=== PATIENT | male | born 2000 | race Asian ===

== ENCOUNTER 2021-10-23 17:04 | Inpatient (IN) | payer OTHER ==
[~2021-10-23] VITALS: Ht 170.2 cm; Wt 84.5 kg
[2021-10-23] MEDS ORDERED: HOME MED LIST COMPLETE! XX SCH (19:00)
[2021-10-23] MEDS ORDERED: MAALOX 30 ML SUSP *UDC PO PRN (20:00)
[2021-10-23] MEDS ORDERED: MOM 30ML SUSPENSION UDC PO PRN (20:00)
[2021-10-23] MEDS ORDERED: hydrOXYzine 10 MG TAB PO PRN (20:00)
[2021-10-23] MEDS ORDERED: traZODone 50 MG TAB PO PRN (20:00)
[2021-10-23] MEDS ORDERED: ACETAMINOPHEN TAB 650MG DOSE (2X325MG) PO PRN (20:00)
[2021-10-24 00:53] VITALS: BP 134/91
[2021-10-24 06:43] VITALS: BP 122/67
[2021-10-24] MEDS: NICOTINE 14 MG/24 HR TRANSDERMAL TD SCH (09:00)
[2021-10-24] MEDS ORDERED: SERTRALINE HCL 50 MG TAB PO ONE (09:00)
[2021-10-24 18:31] LABS: HEMATOCRIT 45.6 % (42.0-52.0); HEMOGLOBIN 15.4 g/dl (13.5-17.5); MEAN CORPUSCULAR HEMOGLOBIN 28.6 pg (27.0-33.0); MEAN CORPUSCULAR HGB CONC 33.8 g/dl (32.0-36.5); MEAN CORPUSCULAR VOLUME 84.6 fl (80.0-96.0); PLATELET COUNT, AUTOMATED 221 10^3/uL (150-450); RED BLOOD COUNT 5.39 10^6/uL (4.30-6.10); WHITE BLOOD COUNT 6.6 10^3/uL (4.0-10.0)
[2021-10-24 18:53] VITALS: BP 131/87
[2021-10-24 19:05] LABS: BLOOD UREA NITROGEN 13 MG/DL (7-18); CALCIUM LEVEL 8.7 MG/DL (8.5-10.1); CARBON DIOXIDE LEVEL 23 MEQ/L (21-32); CHLORIDE LEVEL 109 MEQ/L (98-107); CREATININE FOR GFR 0.92 MG/DL (0.70-1.30); GLOMERULAR FILTRATION RATE > 60.0 (>60); GLUCOSE, FASTING 82 MG/DL (70-100); POTASSIUM SERUM 4.8 MEQ/L (3.5-5.1); SODIUM LEVEL 136 MEQ/L (136-145)
[2021-10-25 06:03] VITALS: BP 115/59
[2021-10-25] MEDS: NICOTINE 14 MG/24 HR TRANSDERMAL TD SCH (09:00)
[2021-10-25 16:49] VITALS: BP 126/75
[2021-10-26 07:06] VITALS: BP 114/67
[2021-10-26] MEDS: NICOTINE 14 MG/24 HR TRANSDERMAL TD SCH (09:00)
[2021-10-26 16:07] VITALS: BP 134/72
[2021-10-27 06:00] VITALS: BP 117/60
[2021-10-27] MEDS: NICOTINE 14 MG/24 HR TRANSDERMAL TD SCH (08:58)
[2021-10-27 16:12] VITALS: BP 126/81
[2021-10-28 06:51] VITALS: BP 124/73
[2021-10-28] MEDS: NICOTINE 14 MG/24 HR TRANSDERMAL TD SCH (09:00)
== END 2021-10-28 12:39 | disposition home or self-care (01) | DRG 882 ==
LOC: M ED 17:04 → M ED INP 19:57 → M PSY 10-24 00:51
PROVIDERS: ADMIT Psychiatry & Neurology Psychiatry; ATTEND Psychiatry & Neurology Psychiatry
DX: F43.23 Adjustment disorder with mixed anxiety and depressed mood (principal); F32.9 Major depressive disorder, single episode, unspecified; Z63.5 Disruption of family by separation and divorce; Z81.8 Family history of other mental and behavioral disorders

== ENCOUNTER 2021-11-23 20:29 | Emergency (ER) | payer OTHER ==
[~2021-11-23] VITALS: Ht 170.2 cm; Wt 88.6 kg
[2021-11-23 21:43] LABS: BASO # 0.1 10^3/uL (0.0-0.2); BASO % 0.6 % (0.0-1.0); EOS % 0.5 % (0.0-3.0); HEMATOCRIT 45.1 % (42.0-52.0); HEMOGLOBIN 15.4 g/dl (13.5-17.5); LYMPH % 13.2 % (24.0-44.0); MEAN CORPUSCULAR HEMOGLOBIN 28.8 pg (27.0-33.0); MEAN CORPUSCULAR HGB CONC 34.1 g/dl (32.0-36.5); MEAN CORPUSCULAR VOLUME 84.3 fl (80.0-96.0); MONO # 0.4 10^3/uL (0.0-0.8); MONO % 4.8 % (2.0-8.0); NEUTROPHILS # 6.3 10^3/uL (1.5-8.5); NEUTROPHILS % 80.4 % (36.0-66.0); PLATELET COUNT, AUTOMATED 189 10^3/uL (150-450); RED BLOOD COUNT 5.35 10^6/uL (4.30-6.10); WHITE BLOOD COUNT 7.8 10^3/uL (4.0-10.0)
[2021-11-23 22:16] LABS: ALBUMIN 3.8 GM/DL (3.2-5.2); ALT/SGPT 20 U/L (12-78); BILIRUBIN,DIRECT 0.3 MG/DL (0.0-0.2); BILIRUBIN,TOTAL 0.3 MG/DL (0.2-1.0); BLOOD UREA NITROGEN 8 MG/DL (7-18); CALCIUM LEVEL 8.4 MG/DL (8.5-10.1); CARBON DIOXIDE LEVEL 26 MEQ/L (21-32); CHLORIDE LEVEL 107 MEQ/L (98-107); CREATININE FOR GFR 0.79 MG/DL (0.70-1.30); ETHYL ALCOHOL (ETHANOL) 0.233 % (0.000-0.010); GLOMERULAR FILTRATION RATE > 60.0 (>60); GLUCOSE, FASTING 107 MG/DL (70-100); NT-PRO BNP 13 PG/ML (<125); SODIUM LEVEL 140 MEQ/L (136-145); TOTAL PROTEIN 6.8 GM/DL (6.4-8.2)
[2021-11-23 23:06] LABS: AMPHETAMINES LEVEL URINE NEGATIVE (NEGATIVE); BARBITURATES URINE NEGATIVE (NEGATIVE); BENZODIAZEPINES URINE NEGATIVE (NEGATIVE); CANNABINOIDS URINE NEGATIVE (NEGATIVE); COCAINE METABOLITE URINE NEGATIVE (NEGATIVE); METHADONE URINE NEGATIVE (NEGATIVE); OPIATES URINE NEGATIVE (NEGATIVE); PHENCYCLIDINE URINE NEGATIVE (NEGATIVE)
[2021-11-24 00:04] VITALS: BP 132/74
== END 2021-11-24 00:08 | disposition home or self-care (01) ==
LOC: EDBD 20:29 → M ED 20:29
DX: F10.120 Alcohol abuse with intoxication, uncomplicated (principal)